=== PATIENT | male | born 1980 | race Caucasian/White ===

== ENCOUNTER 2020-08-11 23:22 | Inpatient (IN) | payer OTHER ==
[2020-08-11 23:31] VITALS: BMI 25.0
[2020-08-12] MEDS ORDERED: VANCOMYCIN/WATER 1,250 MG/250 ML BAG IVPB ONE ×2 (01:09→17:00)
[2020-08-12] MEDS ORDERED: CLINDAMYCIN 600MG PREMIX IVPB 600 MG/50 ML BAG IVPB ONE (01:30)
[2020-08-12 01:44] LABS: BASO % 1.1 % (0-2.0); EOS % 3.5 % (0-4.5); HEMOGLOBIN 12.5 GM/dL (11.7-16.9); LYMPH % 33.8 % (8-40); MCH 30.5 pg (25.7-33.7); MCHC 33.8 g/dl (32.0-35.9); MEAN CELL VOLUME 90.2 fl (80-96); MEAN PLT VOLUME 8.8 fl (7.5-11.1); NEUT % 53.6 % (42.8-82.8); PLATELET COUNT 335 K/MM3 (134-434); WHITE BLOOD COUNT 8.2 K/mm3 (4.0-10.0)
[2020-08-12 02:04] LABS: CALCIUM 9.7 mg/dL (8.5-10.1)
[2020-08-12 02:05] LABS: ALBUMIN 3.8 g/dl (3.4-5.0); BLOOD UREA NITROGEN 19.1 mg/dL (7-18)
[2020-08-12 02:08] LABS: CREATININE 1.1 mg/dL (0.55-1.3)
[2020-08-12 02:09] LABS: BILIRUBIN,TOTAL 0.4 mg/dL (0.2-1); TOT PROT 8.3 g/dl (6.4-8.2)
[2020-08-12] MEDS ORDERED: LORazepam 1 MG TABLET PO PRN (04:54)
[2020-08-12] MEDS ORDERED: LORazepam 2 MG/ML SDV VIAL ONE (05:29)
[2020-08-12] MEDS: LORazepam 1 MG TABLET PO SCH ×2 (06:20→12:45)
[2020-08-12] MEDS ORDERED: PIPERACILLIN/TAZOB 3.375 GM 3.375 GM in DEXTROSE 5%-WATER - 50 ML IVPB SCH ×2 (08:00→10:00)
[2020-08-12] MEDS ORDERED: DIPHTH,PERTUSS(ACELL),TET VAC 0.5 ML VIAL IM ONE (09:00)
[2020-08-12] MEDS ORDERED: ENOXAPARIN NA (PORCINE) 40 MG/0.4 ML DISP.SYRIN SQ SCH (10:00)
[2020-08-12] MEDS: VANCOMYCIN/WATER BAGS 1,250 MG/250 ML BAG IVPB ONE ×2 (12:45→13:20)
[2020-08-12 14:16] VITALS: BP 114/62; PULSE 76; TEMP 98.7
[2020-08-13] MEDS ORDERED: LORazepam 1 MG TABLET PO SCH (05:00)
[2020-08-14] MEDS ORDERED: LORazepam 0.5 MG TABLET PO PRN
[2020-08-14] MEDS ORDERED: LORazepam 0.5 MG TABLET PO SCH (05:00)
[2020-08-15] MEDS ORDERED: LORazepam 0.5 MG TABLET PO ONE (05:00)
== END 2020-08-12 14:16 | disposition left against medical advice (07) | DRG 383 ==
LOC: JER 23:22 → JERBED 08-12 01:05 → UNDOADMIN 08-12 01:05 → JERBED 08-12 02:21 → J6S 08-12 09:17
PROVIDERS: ADMIT Hospitalist
DX: L03.114 Cellulitis of left upper limb (principal); F11.23 Opioid dependence with withdrawal; S51.841A Puncture wound with foreign body of right forearm, initial encounter; F17.210 Nicotine dependence, cigarettes, uncomplicated; S51.842A Puncture wound with foreign body of left forearm, initial encounter; L03.113 Cellulitis of right upper limb; R19.7 Diarrhea, unspecified; F10.239 Alcohol dependence with withdrawal, unspecified; F10.229 Alcohol dependence with intoxication, unspecified; Z59.0 Homelessness; T14.90XA Injury, unspecified, initial encounter; X58.XXXA Exposure to other specified factors, initial encounter; Y93.9 Activity, unspecified; Y92.89 Other specified places as the place of occurrence of the external cause; Y99.9 Unspecified external cause status
CPT/HCPCS: 36415; 71046-TC-FY; 73090-TC-LT-FY; 73090-TC-RT-FY; 80053; 85025; 87040; 93005; 93010; 99285-25; C9803; U0003; U0005

== ENCOUNTER 2020-08-12 21:50 | Inpatient (IN) | payer OTHER ==
[2020-08-12] MEDS ORDERED: VANCOMYCIN 1 GM in D5W (PRE-DOCKED) 1,000 MG/250 ML IVPB ONE (23:55)
[2020-08-13] MEDS ORDERED: PIPERACILLIN/TAZOB 3.375 GM 3.375 GM in DEXTROSE 5%-WATER - 50 ML IVPB ONE (00:01)
[2020-08-13] MEDS ORDERED: VANCOMYCIN 1 GRAM (PRE-DOCKED) 1,000 MG/250 ML BAG IVPB ONE (00:16)
[2020-08-13 01:32] LABS: ALBUMIN 3.6 g/dl (3.4-5.0); BLOOD UREA NITROGEN 17.7 mg/dL (7-18); CALCIUM 9.2 mg/dL (8.5-10.1)
[2020-08-13 01:37] LABS: BILIRUBIN,TOTAL 0.3 mg/dL (0.2-1); TOT PROT 7.6 g/dl (6.4-8.2)
[2020-08-13] MEDS ORDERED: SENNOSIDES 8.6MG TABLET (FP) PO PRN (02:18)
[2020-08-13] MEDS ORDERED: LORazepam 1 MG TABLET PO PRN (02:18)
[2020-08-13 02:31] LABS: URINE AMPHETAMINES NEGATIVE ng/ml (CUTOFF=500); URINE BARBITURATES NEGATIVE ng/ml (CUTOFF=200)
[2020-08-13] MEDS ORDERED: cloNIDine HCL 0.1 MG TABLET PO PRN (02:31)
[2020-08-13 02:32] LABS: PHENCYCLIDINE,URINE NEGATIVE ng/ml (CUTOFF=25)
[2020-08-13] MEDS ORDERED: DIPHTH,PERTUSS(ACELL),TET VAC 0.5 ML VIAL IM ONE (02:38)
[2020-08-13 02:47] LABS: COCAINE, UR POSITIVE ng/ml (CUTOFF=300); METHADONE, UR POSITIVE ng/ml (CUTOFF=300); OPIATES, URI POSITIVE ng/ml (CUTOFF=300); URINE BENZODIAZEPINES POSITIVE ng/ml (CUTOFF=200)
[2020-08-13] MEDS ORDERED: DIPHTH,PERTUSS(ACELL),TET 0.5 ML DISP.SYRIN IM ONE (03:00)
[2020-08-13 04:50] VITALS: TEMP 98.3
[2020-08-13] MEDS: CEPHALEXIN MONOHYDRATE 500 MG CAPSULE (UD) PO SCH ×3 (05:04→13:15)
[2020-08-13 05:06] VITALS: BMI 28.2
[2020-08-13] MEDS ORDERED: ONDANSETRON 4 MG/2 ML VIAL IVPUSH ONE (06:45)
[2020-08-13] MEDS ORDERED: ONDANSETRON 4 MG/2 ML VIAL IVPUSH PRN (06:45)
[2020-08-13] MEDS ORDERED: METHADONE HCL 10 MG TABLET PO ONE ×3 (06:46→10:00)
[2020-08-13] MEDS ORDERED: BENZOIN/ALOE VERA/STORAX/TOLU 58 ML BOTTLE ONE (09:05)
[2020-08-13] MEDS ORDERED: DOCUSATE SODIUM 100 MG CAPSULE (FP) PO SCH (10:00)
[2020-08-13] MEDS ORDERED: NICOTINE 21 MG/24 HOURS TOPICAL PATCH TD SCH (10:00)
[2020-08-13 12:55] VITALS: BP 130/58; PULSE 66
[2020-08-14] MEDS ORDERED: METHADONE 20 MG, METHADONE 5 MG PO ONE (10:00)
[2020-08-15] MEDS ORDERED: METHADONE HCL 10 MG TABLET PO ONE (10:00)
[2020-08-16] MEDS ORDERED: METHADONE 10 MG, METHADONE 5 MG PO ONE (10:00)
[2020-08-17] MEDS ORDERED: METHADONE HCL 10 MG TABLET PO ONE (10:00)
[2020-08-18] MEDS ORDERED: METHADONE HCL 5 MG TABLET PO ONE (06:00)
== END 2020-08-13 14:13 | disposition left against medical advice (07) | DRG 383 ==
LOC: JER 21:50 → JERBED 23:45 → J7W 08-13 04:44
PROVIDERS: ADMIT Hospitalist
PROC: HZ2ZZZZ Detoxification Services for Substance Abuse Treatment (ICD-10-PCS; principal; 2020-08-12)
DX: L03.114 Cellulitis of left upper limb (principal); L03.113 Cellulitis of right upper limb; Z59.0 Homelessness; F11.23 Opioid dependence with withdrawal; F17.210 Nicotine dependence, cigarettes, uncomplicated; S51.841A Puncture wound with foreign body of right forearm, initial encounter; R19.7 Diarrhea, unspecified; S41.109A Unspecified open wound of unspecified upper arm, initial encounter; F10.239 Alcohol dependence with withdrawal, unspecified; M79.5 Residual foreign body in soft tissue; F19.20 Other psychoactive substance dependence, uncomplicated; T14.90XA Injury, unspecified, initial encounter; X58.XXXA Exposure to other specified factors, initial encounter; Y93.9 Activity, unspecified; Y92.89 Other specified places as the place of occurrence of the external cause; Y99.9 Unspecified external cause status
CPT/HCPCS: 36415; 80053; 80307; 99285-25; C9803; U0003; U0005

== ENCOUNTER 2020-08-14 17:32 | Inpatient (IN) | payer OTHER ==
[2020-08-14] MEDS ORDERED: CEPHALEXIN MONOHYDRATE 250 MG CAPSULE (FP) PO ONE (20:23)
[2020-08-14] MEDS ORDERED: CEPHALEXIN MONOHYDRATE 250 MG CAPSULE (FP) ONE (20:37)
[2020-08-14] MEDS ORDERED: METHADONE HCL 10 MG TABLET PO ONE (22:46)
[2020-08-14] MEDS ORDERED: cloNIDine HCL 0.1 MG TABLET PO PRN (22:55)
[2020-08-14] MEDS ORDERED: NICOTINE POLACRILEX 4 MG GUM BUC PRN (22:55)
[2020-08-14] MEDS ORDERED: ONDANSETRON *ODT* 4 MG TABLET SL PRN (23:08)
[2020-08-14] MEDS ORDERED: METHADONE HCL 10 MG TABLET ONE (23:52)
[2020-08-15] MEDS: CEPHALEXIN MONOHYDRATE 500 MG CAPSULE (UD) PO SCH ×4 (00:17→18:35)
[2020-08-15 00:42] LABS: URINE APPEARANCE CLEAR; URINE BILIRUBIN NEGATIVE (NEGATIVE); URINE COLOR YELLOW; URINE GLUCOSE (UA) NEGATIVE (NEGATIVE); URINE KETONE TRACE (NEGATIVE); URINE LEUK ESTERASE NEGATIVE (NEGATIVE); URINE NITRITE NEGATIVE (NEGATIVE); URINE PROTEIN NEGATIVE (NEGATIVE)
[2020-08-15] MEDS ORDERED: LORazepam 1 MG TABLET ONE ×2 (00:53→07:39)
[2020-08-15] MEDS: LORazepam 1 MG TABLET PO PRN ×3 (01:00→18:35)
[2020-08-15 01:25] LABS: BASO % 0.7 % (0-2.0); EOS % 4.8 % (0-4.5); HEMATOCRIT 34.1 % (35.4-49); HEMOGLOBIN 11.9 GM/dL (11.7-16.9); LYMPH % 40.1 % (8-40); MCH 31.3 pg (25.7-33.7); MEAN CELL VOLUME 89.7 fl (80-96); MEAN PLT VOLUME 8.8 fl (7.5-11.1); MONO % 8.4 % (3.8-10.2); PLATELET COUNT 321 K/MM3 (134-434); RDW 13.5 % (11.9-15.9); WHITE BLOOD COUNT 8.1 K/mm3 (4.0-10.0)
[2020-08-15 01:44] LABS: ALBUMIN 3.3 g/dl (3.4-5.0); BLOOD UREA NITROGEN 15.5 mg/dL (7-18); CALCIUM 9.2 mg/dL (8.5-10.1)
[2020-08-15 01:47] LABS: INR 0.97 (0.83-1.09); PROTHROMBIN TIME (PATIENT) 11.7 SEC (9.7-13.0)
[2020-08-15 01:47] LABS: CREATININE 1.1 mg/dL (0.55-1.3)
[2020-08-15 01:49] LABS: BILIRUBIN,TOTAL 0.2 mg/dL (0.2-1); TOT PROT 7.2 g/dl (6.4-8.2)
[2020-08-15 01:50] LABS: ACTIVATED PTT 32.9 SECONDS (25.2-36.5)
[2020-08-15] MEDS ORDERED: CEPHALEXIN MONOHYDRATE 500 MG CAPSULE (UD) ONE (06:33)
[2020-08-15] MEDS ORDERED: METHADONE HCL 10 MG TABLET ONE ×3 (07:36→18:54)
[2020-08-15] MEDS ORDERED: METHADONE HCL 5 MG TABLET ONE ×3 (07:37→18:54)
[2020-08-15] MEDS ORDERED: cloNIDine HCL 0.1 MG TABLET ONE (07:38)
[2020-08-15 11:17] VITALS: BMI 27.6
[2020-08-15] MEDS: NICOTINE 21 MG/24 HOURS TOPICAL PATCH TD SCH ×2 (12:31→12:36)
[2020-08-15] MEDS: ENOXAPARIN NA (PORCINE) 40 MG/0.4 ML DISP.SYRIN SQ SCH ×2 (12:31→12:36)
[2020-08-15] MEDS: METHADONE 20 MG, METHADONE 5 MG PO ONE ×3 (12:31→18:59)
[2020-08-15] MEDS ORDERED: PT OWN MED DRAWER 7, Y5N ONE (14:37)
[2020-08-15 17:45] LABS: SYPHILIS W/ RPR CONF NON-REACTIVE (NONREACTIVE)
[2020-08-15 18:14] LABS: HIV INTERPRETATION NEGATIVE (NEGATIVE)
[2020-08-15] MEDS ORDERED: METHADONE 20 MG, METHADONE 5 MG PO ONE (19:00)
[2020-08-15 22:54] VITALS: TEMP 98.2
[2020-08-16] MEDS: CEPHALEXIN MONOHYDRATE 500 MG CAPSULE (UD) PO SCH ×3 (00:21→06:29)
[2020-08-16 06:29] VITALS: BP 137/86; PULSE 56
[2020-08-16] MEDS ORDERED: METHADONE HCL 10 MG TABLET (FOR DETOX USE ONLY) PO ONE (10:00)
[2020-08-16 16:10] LABS: HEP B CORE AB, TOT Negative (Negative)
[2020-08-17] MEDS ORDERED: METHADONE 10 MG, METHADONE 5 MG PO ONE (10:00)
[2020-08-18] MEDS ORDERED: METHADONE HCL 10 MG TABLET (FOR DETOX USE ONLY) PO ONE (10:00)
[2020-08-19] MEDS ORDERED: METHADONE HCL 5 MG TABLET (FOR DETOX USE ONLY) PO ONE (06:00)
== END 2020-08-16 09:19 | disposition left against medical advice (07) | DRG 383 ==
LOC: JER 17:32 → JERBED 21:22 → J5S 08-15 09:04
PROVIDERS: ADMIT Hospitalist
PROC: HZ2ZZZZ Detoxification Services for Substance Abuse Treatment (ICD-10-PCS; principal; 2020-08-14)
DX: L03.113 Cellulitis of right upper limb (principal); L03.114 Cellulitis of left upper limb; F10.239 Alcohol dependence with withdrawal, unspecified; M79.5 Residual foreign body in soft tissue; R19.7 Diarrhea, unspecified; F11.23 Opioid dependence with withdrawal; F19.10 Other psychoactive substance abuse, uncomplicated
CPT/HCPCS: 36415; 80053; 81003; 85025; 85610; 85730; 86480; 86704; 86706; 86707; 86708; 86709; 86780; 86850; 86900; 86901; 87340; 87389; 87491; 87522; 87591; 99285-25; C9803; J0735; U0003; U0005